=== PATIENT | female | born 1970 | race Two or more races ===

== ENCOUNTER 2021-11-28 15:56 | Emergency (ER) | payer BC ==
[~2021-11-28] VITALS: Ht 149.9 cm; Wt 53.5 kg
[2021-11-28 16:22] VITALS: BP 128/72
--- NOTE | 2021-11-28 16:25 | NUR ---
BIBS FOR C/O LEFT FOOT PAIN 5/10 AND SWELLING,TRIPPED AND FELL 2 DAYS AGO WHILE IN [facility]. MATTHEW PEDAL PULSES PRESENT. WILL CONTINUE TO MONITOR THE PATIENT.
--- NOTE | 2021-11-28 16:48 | NUR ---
PT SEEN BY INSURANCE UNDERWRITER
[2021-11-28] MEDS ORDERED: TRAMADOL HCL 50 MG TABLET ONE (16:57)
[2021-11-28] MEDS ORDERED: TRAMADOL HCL 50 MG TABLET PO ONE (17:00)
[2021-11-28] MEDS ORDERED: HYDR-4303 PO (17:26)
[2021-11-28] MEDS ORDERED: IBUP-1955 PO (17:26)
--- NOTE | 2021-11-28 17:48 | NUR ---
Patient discharged to home in stable condition. Written and verbal after care instructions given. Patient verbalizes understanding of instruction.
== END 2021-11-28 17:49 | disposition home or self-care (01) ==
LOC: ER 16:04
DX: S82.65XA Nondisplaced fracture of lateral malleolus of left fibula, initial encounter for closed fracture (principal); W01.0XXA Fall on same level from slipping, tripping and stumbling without subsequent striking against object, initial encounter; Y93.89 Activity, other specified; Y92.89 Other specified places as the place of occurrence of the external cause; Y99.8 Other external cause status
CPT/HCPCS: 73590-TC; 73610-TC; 73630-TC